=== PATIENT | female | born 1995 | race American Indian/Alaskan Native ===

== ENCOUNTER 2016-06-05 16:43 | Inpatient (IN) | payer MEDICAID, OTHER ==
[2016-06-05] MEDS ORDERED: Acetaminophen 325 MG Tab PO PRN (16:58)
[2016-06-05] MEDS ORDERED: Carboprost Tromethamine 250 MCG/1 ML Amp IM PRN (16:58)
[2016-06-05] MEDS ORDERED: Methylergonovine 0.2 MG/1 ML Amp IM PRN (16:58)
[2016-06-05] MEDS ORDERED: fentaNYL 100 MCG/2 ML SDV SUBCUT PRN ×2 (16:58→19:50)
[2016-06-05] MEDS ORDERED: Lactated Ringers 500 ML IV ONE (16:58)
[2016-06-05] MEDS ORDERED: Sodium Chloride 0.9% 10 ML Syringe FLUSH PRN (16:58)
[2016-06-05] MEDS ORDERED: Lidocaine 1% 30 ML SDV INJECT PRN (16:58)
[2016-06-05] MEDS ORDERED: Misoprostol 400 MCG (4 X 100 MCG TAB) RECTAL PRN (16:58)
[2016-06-05] MEDS ORDERED: Ondansetron 4 MG/2 ML SDV IV PRN (16:58)
[2016-06-05] MEDS ORDERED: Oxytocin/Normal Saline 30 UNIT/500 ML BAG IV SCH (17:00)
--- NOTE | 2016-06-05 17:02 | PCM.LDHP ---
L&D History of Present Illness - General Date of Service: 06/05/16 Admit Problem/Dx: Patient Status Order with Admit Dx/Problem 06/05/16 16:58 Patient Status [ADT] Routine Patient Status: Admit to Inpatient Admission Diagnosis/Problem: care Reason for Admit: Advanced cervical dilation Nurse Unit Type: Labor and Delivery Admitting Physician: Terra Eduardo Attending Physician: Terra Eduardo Admission Diagnosis/Problem Admission Diagnosis/Problem care Source of Information: Patient History Limitations: Reports: No limitations - History of Present Illness Introduction:: 21-year-old at 37w4d presents from clinic for advanced cervical dilation. She presented for her routine OB appointment today and complained of feeling pressure. Her cervix was significantly dilated at 5+ cm so she was sent here for evaluation. She is not feeling any contractions. NO vaginal bleeding or leaking of fluid. NO new headaches or vision changes. - Related Data Allergies/Adverse Reactions: Allergies Allergy/AdvReac Type Severity Reaction Status Date / Time No Known Allergies Allergy Verified 06/05/16 17:33 Home Medications: Home Meds Vit with Ca/FA/Iron [ Plus Iron] 1 tab PO DAILY 06/05/16 [ History] valACYclovir HCl [Valtrex] 500 mg PO DAILY 06/05/16 [History] H&P Review of Systems - Review of Systems: Review Of Systems: See Below General: Reports: no symptoms HEENT: Reports: no symptoms Pulmonary: Reports: no symptoms Cardiovascular: Reports: no symptoms Gastrointestinal: Reports: No symptoms Genitourinary: Reports: pain (pelvic) Musculoskeletal: Reports: no symptoms Skin: Reports: no symptoms L&D Exam - Exam Exam: See Below - OB Specific Fundal Height in cm: 40 Contraction Frequency (min): 3-5 Contraction Intensity: Mild movement: active heart tones: present heart tones per min: 140 Heart Rate (FHR) Variability: Moderate (6-25 bmp) Presentation: Vertex - Hope Score Hope Score Cervix Position: Midposition Hope Score Consistency: Soft Hope Score Effacement: 51-70% Hope Score Dilation: > 5 cm Hope Score Infant's Station: -2 Hope Score Total: 9 - Exam General: alert, oriented Lungs: Clear to auscultation, Normal respiratory effort Cardiovascular: regular rate, regular rhythm. No: systolic murmur, diastolic murmur Genitourinary: Normal external exam, Cervical dilitation (5 cm) Back Exam: normal inspection, full range of motion Extremities: normal inspection Skin: warm, dry, intact - Patient Data Result Diagrams: 06/05/16 16:55 Feroz Results last 24 hrs: Urinalysis in clinic positive for UTI - Problem List (1) care SNOMED Code(s): 956108265, 54210425, 481638175, 545502658 ICD Code: Z34.90 - ENCNTR FOR SUPRVSN OF NORMAL , UNSP, UNSP TRIMESTER Status: Acute Current Visit: Yes (2) UTI (urinary tract infection) in in third trimester SNOMED Code(s): 250882539, 184690626 ICD Code: O23.43 - UNSP INFCT OF URINARY TRACT IN , THIRD TRIMESTER Status: Acute Current Visit: Yes (3) Rubella non-immune status, antepartum SNOMED Code(s): 858143571 ICD Code: O99.89 - OTH DISEASES AND CONDITIONS COMPL PREG/CHLDBRTH; Z28.3 - UNDERIMMUNIZATION STATUS Status: Acute Current Visit: Yes (4) History of herpes genitalis SNOMED Code(s): 085492960 ICD Code: Z86.19 - PERSONAL HISTORY OF OTHER INFECTIOUS AND PARASITIC DISEASES Status: Acute Current Visit: Yes Problem List Initiated/Reviewed/Updated: Yes Orders Last 24hrs: Active Orders 24 hr Category Date Time Status Patient Status [ADT] Routine ADT 06/05/16 16:58 Ordered Communication Order [RC] ASDIRECTED Care 06/05/16 16:58 Ordered Heart Tones [RC] PER UNIT ROUTINE Care 06/05/16 16:58 Ordered Notify Provider Vital Signs OB [RC] ASDIRECTED Care 06/05/16 16:58 Ordered Notify Provider [RC] PRN Care 06/05/16 16:58 Ordered Pump Management, Intrathecal [RC] ASDIRECTED Care 06/05/16 16:58 Ordered Up ad Kaley [RC] ASDIRECTED Care 06/05/16 16:58 Ordered Vital Signs [RC] PER UNIT ROUTINE Care 06/05/16 16:58 Ordered Clear Liquid Diet [DIET] Diet 06/05/16 Dinner Ordered CBC W/O DIFF,HEMOGRAM [HEME] Routine Lab 06/05/16 16:58 Ordered Acetaminophen [Tylenol] Med 06/05/16 16:58 Ordered 650 mg PO Q4H PRN Carboprost Tromethamine [Hemabate DS] Med 06/05/16 16:58 Ordered 250 mcg IM ASDIRECTED PRN Lactated Ringers @ 125 MLS/HR(1000ml) Med 06/05/16 17:00 Ordered Lactated Ringers [Ringers, Lactated] 1,000 ml IV ASDIRECTED Lactated Ringers [Ringers, Lactated] 500 ml Med 06/05/16 16:58 Ordered IV .BOLUS Lidocaine 1% [Xylocaine-MPF 1%] Med 06/05/16 16:58 Ordered 10 ml INJECT ASDIRECTED PRN Methylergonovine [Methergine] Med 06/05/16 16:58 Ordered 0.2 mg IM ASDIRECTED PRN Misoprostol [Cytotec] Med 06/05/16 16:58 Ordered 800 mcg RECTAL ASDIRECTED PRN Ondansetron [Zofran] Med 06/05/16 16:58 Ordered 4 mg IV Q4H PRN Oxytocin 30 Units in NS @ 2 MUNITS/MIN(500ml) Med 06/05/16 17:00 Ordered Oxytocin/Normal Saline [Pitocin in NS 30 UNIT/500 ML] 30 unit in 500 ml IV TITRATE Sodium Chloride 0.9% [Saline Flush] Med 06/05/16 16:58 Ordered 10 ml FLUSH ASDIRECTED PRN fentaNYL [Sublimaze] Med 06/05/16 16:58 Ordered 100 mcg SUBCUT Q1H PRN Saline Lock Insert [OM.PC] Routine Oth 06/05/16 16:58 Ordered Resuscitation Status Routine Resus Stat 06/05/16 16:58 Ordered Medication Orders Acetaminophen (Tylenol) 650 mg PO Q4H PRN PRN Reason: Pain (Mild 1-3) and fever Carboprost Tromethamine (Hemabate Ds) 250 mcg IM ASDIRECTED PRN PRN Reason: HEMORRHAGE Fentanyl (Sublimaze) 100 mcg SUBCUT Q1H PRN PRN Reason: Pain (moderate 4-6) Lactated Ringer's (Ringers, Lactated) 500 mls @ 999 mls/hr IV .BOLUS ONE Stop: 06/05/16 17:28 Lactated Ringer's (Ringers, Lactated) 1,000 mls @ 125 mls/hr IV ASDIRECTED ERNESTO Oxytocin/Sodium Chloride (Pitocin In Ns 30 Unit/500 Ml) 30 unit in 500 mls @ 2 mls/hr IV TITRATE ERNESTO; 2 MUNITS/MIN PRN Reason: Protocol Lidocaine HCl (Xylocaine-Mpf 1%) 10 ml INJECT ASDIRECTED PRN PRN Reason: Perineal Repair Methylergonovine Maleate (Methergine) 0.2 mg IM ASDIRECTED PRN PRN Reason: Hemorrhage Misoprostol (Cytotec) 800 mcg RECTAL ASDIRECTED PRN PRN Reason: Hemorrhage Ondansetron HCl (Zofran) 4 mg IV Q4H PRN PRN Reason: Nausea/Vomiting Sodium Chloride (Saline Flush) 10 ml FLUSH ASDIRECTED PRN PRN Reason: Keep Vein Open Assessment/Plan Comment:: 21-year-old at 38w6d presenting in labor --UTI in PLAN: 1. Admit to labor and delivery 2. Initiate routine intrapartum orders 3. AROM'd for moderate clear fluid 4. Rocephin for UTI 5. Intrathecal when desired 6. Expectant management. Anticipate Terra Eduardo MD
[2016-06-05] MEDS: Lactated Ringers 1,000 ML IV SCH ×2 (17:23→20:21)
[2016-06-05] MEDS: cefTRIAXone 1 GM in Sodium Chloride 0.9% 50 ML IV SCH (18:00)
--- NOTE | 2016-06-05 20:51 | PCM.SN ---
- Free Text/Narrative Note: Intrathecal. Sitting position, sterile prep and drape. 1% lidocaine w bicarb for skinwheal to L2 L3 interspace. Introducer, 24 ga pencan x 1. Pos CSF, neg heme, neg parasthesia. 20 mcg pf sufenta, 30 mcg pf fentanyl, 0.4ml pf ns 6 mg of 0.75 % pf bupivacaine and 1:1000 pf epiwash injected after CSF aspiration. Pt to R lateral position. Procedure time 2034 to 2099
[2016-06-06] MEDS: Lactated Ringers 1,000 ML IV SCH (01:55)
[2016-06-06] MEDS ORDERED: Benzocaine/Menthol 20%-0.5% Spray 56 GM Canister TOP PRN (03:09)
[2016-06-06] MEDS ORDERED: Oxytocin 10 Units/1 ML SDV IM PRN (03:09)
[2016-06-06] MEDS ORDERED: Misoprostol 400 MCG (4 X 100 MCG TAB) RECTAL PRN (03:09)
[2016-06-06] MEDS ORDERED: Sodium Chloride 0.9% 10 ML Syringe FLUSH PRN (03:09)
[2016-06-06] MEDS ORDERED: Simethicone 80 MG Tab.Chew PO PRN (03:09)
[2016-06-06] MEDS ORDERED: Ketorolac 30 MG/ML SDV IVPUSH PRN (03:11)
--- NOTE | 2016-06-06 03:19 | PCM.DEL ---
L & D Note - General Info Date of Service: 06/06/16 Mother's Due Date: 06/14/16 - Delivery Note Labor: spontaneous, augmented by ARM Delivery Outcome: Livebirth Delivery Method: Spontaneous Vaginal Delivery Infant Delivery Mode: Vacuum Extraction Presentation: Right Occiput Anterior (GREER) Nuchal cord: present, reduced Prep: povidone-iodine (betadine Anesthesia Type: Local, Spinal Anesthetic: lidocaine (xylocaine) 1% plain Local anesthetic volume: other (15 cc) Amniotic Fluid Description: Clear Episiotomy Type: None Laceration: 1st degree, labial (bilateral), perineal Suture type: vicryl Suture size: 4-0 Placenta: intact, spontaneous Cord: 3 vessels Estimated blood loss: 175 Resuscitation needed: Yes [place] [facility]: suctioned, stimulated, warmed, warmer used Score 1 min: 8 Score 5 min: 9 Second Stage Interventions: Reports: Laboring Down, Pushing, Reverse Squat, Pushing Effectively, Pushing, Squatting Delivery Comments (Free Text/Narrative):: 21-year-old, now , presented to the OB floor from clinic for advanced cervical dilation. She was sheba but did not feel them initially. AROM was performed to augment labor. Patient received an intrathecal. She progressed to complete dilation. When she started to feel the urge to push, she pushed effectively for 1 1/2 hours. Due to maternal fatigue, the decision was made to proceed with vacuum delivery. Vacuum delivery was successful and baby delivered after 3 contractions. After the 3rd contraction, heart tones were in the 60s so patient pushed without a contraction and successfully delivered a viable female infant. A loose nuchal cord was reduced at the perineum. The cord was clamped x2 and cut in the usual fashion. Cord blood was collected. The placenta delivered spontaneously several minutes later and appeared to be intact. Small bilateral labial tears were repaired. One figure- of-8 suture was used to reapproximate a first degree perineal laceration. Bleeding was appropriate. There were no complications. Vacuum Extractor Progress Note - Alternative Labor Strategies Considered Alternative labor strategies considered:: Reports: yes Strategies considered:: Reports: Contraction intensity adequate, Position changes used to facilitate rotation & descent, Empty bladder, Rest Indications considered:: Reports: yes Indications:: Reports: Prolonged 2nd stage, Shortening of 2nd stage for maternal benefit Time out:: Reports: no - Patient Prepared Patient prepared:: Reports: yes Informed consent:: Reports: Verbal Risks: Reports: yes Risks include:: Reports: Laceration, Shoulder dystocia, Maternal injury Anesthesia/analgesia adequate:: Reports: yes Comments:: Spinal anesthesia - Probability of Success High probability of success:: Reports: yes weight estimated:: Reports: AGA Patient diabetic:: Reports: no Pelvis adequate:: Reports: yes Asynclitic:: Reports: no Station:: +1 - Application Time Maximum application time & number of pop-offs predetermined:: Reports: yes (20 min, 3 pop-offs) Number of times cup disengaged:: 1 Type of vacuum used:: Reports: Cup: Tee type Vacuum Extraction: Successful - Exit Strategy Exit strategy available:: Reports: yes - General Info Date of Service: 06/06/16 - Patient Data Vitals - most recent: Last Vital Signs Temp 36.7 C 06/05/16 20:45 Pulse 96 06/05/16 23:00 Resp 16 06/05/16 23:00 BP 140/76 06/05/16 23:00 Pulse Ox 94 L 06/05/16 22:30 Weight - most recent: 88.904 kg I&O - last 24 hours: Intake & Output 06/05/16 06/05/16 06/06/16 14:59 22:59 06:59 Intake Total 1050 Balance 1050 Lab Results last 24 hrs: Laboratory Results - last 24 hr 06/05/16 Range/Units 16:55 WBC 11.6 H (5.0-10.0) 10^3/uL RBC 4.15 L (4.2-5.4) 10^6/uL Hgb 12.7 (12.0-16.0) g/dL Hct 38.0 (37.0-47.0) % MCV 91.6 (80-100) fL MCH 30.6 (27.0-34.0) pg MCHC 33.4 (33.0-35.0) g/dL Plt Count 225 (150-450) 10^3/uL Med Orders - Current: Current Medications Acetaminophen (Tylenol) 650 mg PO Q4H PRN PRN Reason: Pain (Mild 1-3) and fever Acetaminophen/Hydrocodone Bitart ([place] 325-10 Mg) 1 tab PO Q4H PRN PRN Reason: Pain (moderate 4-6) Benzocaine/Menthol (Dermoplast Pain Relief [place]) 0 gm TOP Q4H PRN PRN Reason: Perineal comfort measures Carboprost Tromethamine (Hemabate Ds) 250 mcg IM ASDIRECTED PRN PRN Reason: HEMORRHAGE Docusate Sodium (Colace) 100 mg PO BID PRN PRN Reason: Constipation Oxytocin/Sodium Chloride (Pitocin In Ns 30 Unit/500 Ml) 30 unit in 500 mls @ 2 mls/hr IV TITRATE ERNESTO; 2 MUNITS/MIN PRN Reason: Protocol Ceftriaxone Sodium 1 gm/ (Sodium Chloride) 50 mls @ 100 mls/hr IV Q24H ERNESTO Last Admin: 06/05/16 18:00 Dose: 100 mls/hr Ibuprofen (Motrin) 800 mg PO Q8H PRN PRN Reason: Mild Pain or Fever Ketorolac Tromethamine (Toradol) 30 mg IVPUSH Q8H PRN PRN Reason: Pain Stop: 06/11/16 03:11 Methylergonovine Maleate (Methergine) 0.2 mg IM ASDIRECTED PRN PRN Reason: Hemorrhage Misoprostol (Cytotec) 800 mcg RECTAL ASDIRECTED PRN PRN Reason: Hemorrhage Misoprostol (Cytotec) 800 mcg RECTAL ONETIME PRN PRN Reason: Hemorrhage Oxytocin (Pitocin) 10 unit IM ONETIME PRN PRN Reason: Bleeding Prenat Multivit/[place]/Iron/Folic Ac ( Plus Iron) 1 each PO DAILY [facility] Simethicone (Simethicone) 80 mg PO Q4H PRN PRN Reason: Gas Sodium Chloride (Saline Flush) 10 ml FLUSH ASDIRECTED PRN PRN Reason: Keep Vein Open Sodium Chloride (Saline Flush) 10 ml FLUSH ASDIRECTED PRN PRN Reason: Keep Vein Open Discontinued Medications Fentanyl (Sublimaze) 100 mcg SUBCUT Q1H PRN PRN Reason: Pain (moderate 4-6) Fentanyl (Sublimaze) 50 mcg SUBCUT Q1H PRN PRN Reason: Pain (moderate 4-6) Last Admin: 06/05/16 19:52 Dose: 50 mcg Lactated Ringer's (Ringers, Lactated) 500 mls @ 999 mls/hr IV .BOLUS ONE Stop: 06/05/16 17:28 Lactated Ringer's (Ringers, Lactated) 1,000 mls @ 125 mls/hr IV ASDIRECTED ERNESTO Last Admin: 06/05/16 20:21 Dose: 125 mls/hr Lidocaine HCl (Xylocaine-Mpf 1%) 10 ml INJECT ASDIRECTED PRN PRN Reason: Perineal Repair Ondansetron HCl (Zofran) 4 mg IV Q4H PRN PRN Reason: Nausea/Vomiting - Problem List & Annotations (1) care SNOMED Code(s): 569910428, 80069423, 747825090, 717766182 Code(s): Z34.90 - ENCNTR FOR SUPRVSN OF NORMAL , UNSP, UNSP TRIMESTER Status: Acute Current Visit: Yes (2) UTI (urinary tract infection) in in third trimester SNOMED Code(s): 576867529, 399120705 Code(s): O23.43 - UNSP INFCT OF URINARY TRACT IN , THIRD TRIMESTER Status: Acute Current Visit: Yes (3) Rubella non-immune status, antepartum SNOMED Code(s): 878968616 Code(s): O99.89 - OTH DISEASES AND CONDITIONS COMPL PREG/CHLDBRTH; Z28.3 - UNDERIMMUNIZATION STATUS Status: Acute Current Visit: Yes (4) History of herpes genitalis SNOMED Code(s): 199369950 Code(s): Z86.19 - PERSONAL HISTORY OF OTHER INFECTIOUS AND PARASITIC DISEASES Status: Acute Current Visit: Yes (5) Status post vacuum-assisted vaginal delivery SNOMED Code(s): 800976530, 02434374460743198 Code(s): Z87.42 - PERSONAL HISTORY OF OTH DISEASES OF THE FEMALE GENITAL TRACT Status: Acute Current Visit: Yes (6) Obstetric labial laceration, delivered, current hospitalization SNOMED Code(s): 655322015, 830507579 Code(s): O70.0 - FIRST DEGREE PERINEAL LACERATION DURING DELIVERY Status: Acute Current Visit: Yes (7) Perineal laceration, first degree, delivered SNOMED Code(s): 549929218 Code(s): O70.0 - FIRST DEGREE PERINEAL LACERATION DURING DELIVERY Status: Acute Current Visit: Yes - Problem List Review Problem List Initiated/Reviewed/Updated: Yes - My Orders Last 24 Hours: My Active Orders 06/05/16 16:58 Patient Status [ADT] Routine Notify Provider Vital Signs OB [RC] ASDIRECTED Notify Provider [RC] PRN Vital Signs [RC] PER UNIT ROUTINE Acetaminophen [Tylenol] 650 mg PO Q4H PRN Carboprost Tromethamine [Hemabate DS] 250 mcg IM ASDIRECTED PRN Methylergonovine [Methergine] 0.2 mg IM ASDIRECTED PRN Misoprostol [Cytotec] 800 mcg RECTAL ASDIRECTED PRN Sodium Chloride 0.9% [Saline Flush] 10 ml FLUSH ASDIRECTED PRN Saline Lock Insert [OM.PC] Routine Resuscitation Status Routine 06/05/16 17:00 Oxytocin/Normal Saline [Pitocin in NS 30 UNIT/500 ML] 30 unit in 500 ml IV TITRATE 06/05/16 18:00 cefTRIAXone [Rocephin] 1 gm Sodium Chloride 0.9% [Normal Saline] 50 ml IV Q24H 06/06/16 03:09 Up ad Kaley [RC] ASDIRECTED Vital Signs [RC] PFP Consult to Pipe Cleaner [CONS] Routine Acetaminophen/HYDROcodone [[place] 325-10 MG] 1 tab PO Q4H PRN Benzocaine/Menthol [Dermoplast Pain Relief [place]] See Dose Instructions TOP Q4H PRN Docusate Sodium [Colace] 100 mg PO BID PRN Ibuprofen [Motrin] 800 mg PO Q8H PRN Misoprostol [Cytotec] 800 mcg RECTAL ONETIME PRN Oxytocin [Pitocin] 10 unit IM ONETIME PRN Simethicone 80 mg PO Q4H PRN Sodium Chloride 0.9% [Saline Flush] 10 ml FLUSH ASDIRECTED PRN Assess Lochia [WOMSER] Per Unit Routine Assess Uterine Involution [WOMSER] Per Unit Routine Breast Pump [WOMSER] Per Unit Routine Ice Therapy [OM.PC] Per Unit Routine Perineal Care [OM.PC] Per Unit Routine Saline Lock Insert [OM.PC] Urgent Sitz Bath [OM.PC] Per Unit Routine 06/06/16 03:11 Ketorolac [Toradol] 30 mg IVPUSH Q8H PRN 06/06/16 09:00 Vit with Ca/FA/Iron [ Plus Iron] 1 each PO DAILY 06/06/16 Breakfast Regular Diet [DIET] - Assessment Assessment:: 21-year-old, now , status post vacuum assisted vaginal delivery - Plan Plan:: 1. Initiate routine orders 2. Closely monitor bleeding 3. Continue rocephin for UTI. Will switch to oral medications tomorrow 4. [place] and Toradol ordered if needed for moderate to severe pain 5. Anticipate discharge 06/08/16 Terra Eduardo MD
[2016-06-06] MEDS: Ibuprofen 800 MG Tab PO PRN ×3 (05:06→22:04)
[2016-06-06] MEDS: Docusate Sodium 100 MG Cap PO PRN ×2 (08:45→22:04)
[2016-06-06] MEDS: Prenatal Multivitamin with Calcium/Folic Acid/Iron Tab PO SCH (08:45)
[2016-06-06] MEDS: cefTRIAXone 1 GM in Sodium Chloride 0.9% 50 ML IV SCH (17:09)
[2016-06-06] MEDS ORDERED: fentaNYL 100 MCG/2 ML SDV IV ONE (23:30)
[2016-06-07] MEDS: Ibuprofen 800 MG Tab PO PRN ×3 (06:01→22:04)
[2016-06-07] MEDS: Prenatal Multivitamin with Calcium/Folic Acid/Iron Tab PO SCH (10:22)
[2016-06-07] MEDS: Docusate Sodium 100 MG Cap PO PRN ×2 (10:22→22:03)
--- NOTE | 2016-06-07 16:45 | PCM.PNPP ---
- General Info Date of Service: 06/07/16 Subjective Update: 21-year-old, now , day #1 status post vacuum assisted vaginal delivery and bilateral labial repair. She is overall doing well. Pain is well controlled. She does report improved perineal swelling. Bleeding has decreased. She is ambulating without difficulty and tolerating a general diet. She is urinating without difficulty and is passing gas. No concerns per patient or nursing. Functional Status: Reports: pain controlled, tolerating diet, ambulating, urinating - Review of Systems General: Reports: no symptoms HEENT: Reports: no symptoms Pulmonary: Reports: no symptoms Cardiovascular: Reports: no symptoms Gastrointestinal: Reports: No symptoms Genitourinary: Reports: no symptoms Musculoskeletal: Reports: no symptoms Skin: Reports: no symptoms - General Info Date of Service: 06/07/16 - Patient Data Vital Signs - most recent: Last Vital Signs Temp 36.8 C 06/07/16 10:26 Pulse 96 06/07/16 10:26 Resp 16 06/07/16 10:26 BP 117/67 06/07/16 10:26 Pulse Ox 98 06/07/16 10:26 Weight - most recent: 88.904 kg Med Orders - Current: Current Medications Acetaminophen (Tylenol) 650 mg PO Q4H PRN PRN Reason: Pain (Mild 1-3) and fever Acetaminophen/Hydrocodone Bitart ([place] 325-10 Mg) 1 tab PO Q4H PRN PRN Reason: Pain (moderate 4-6) Benzocaine/Menthol (Dermoplast Pain Relief [place]) 0 gm TOP Q4H PRN PRN Reason: Perineal comfort measures Last Admin: 06/06/16 05:06 Dose: 1 spray Carboprost Tromethamine (Hemabate Ds) 250 mcg IM ASDIRECTED PRN PRN Reason: HEMORRHAGE Docusate Sodium (Colace) 100 mg PO BID PRN PRN Reason: Constipation Last Admin: 06/07/16 10:22 Dose: 100 mg Oxytocin/Sodium Chloride (Pitocin In Ns 30 Unit/500 Ml) 30 unit in 500 mls @ 2 mls/hr IV TITRATE ERNESTO; 2 MUNITS/MIN PRN Reason: Protocol Last Titration: 06/06/16 04:37 Dose: Infused Ibuprofen (Motrin) 800 mg PO Q8H PRN PRN Reason: Mild Pain or Fever Last Admin: 06/07/16 13:44 Dose: 800 mg Ketorolac Tromethamine (Toradol) 30 mg IVPUSH Q8H PRN PRN Reason: Pain Stop: 06/11/16 03:11 Methylergonovine Maleate (Methergine) 0.2 mg IM ASDIRECTED PRN PRN Reason: Hemorrhage Misoprostol (Cytotec) 800 mcg RECTAL ASDIRECTED PRN PRN Reason: Hemorrhage Misoprostol (Cytotec) 800 mcg RECTAL ONETIME PRN PRN Reason: Hemorrhage Oxytocin (Pitocin) 10 unit IM ONETIME PRN PRN Reason: Bleeding Prenat Multivit/[place]/Iron/Folic Ac ( Plus Iron) 1 each PO DAILY [facility] Last Admin: 06/07/16 10:22 Dose: 1 each Simethicone (Simethicone) 80 mg PO Q4H PRN PRN Reason: Gas Sodium Chloride (Saline Flush) 10 ml FLUSH ASDIRECTED PRN PRN Reason: Keep Vein Open Sodium Chloride (Saline Flush) 10 ml FLUSH ASDIRECTED PRN PRN Reason: Keep Vein Open Discontinued Medications Fentanyl (Sublimaze) 100 mcg SUBCUT Q1H PRN PRN Reason: Pain (moderate 4-6) Fentanyl (Sublimaze) 50 mcg SUBCUT Q1H PRN PRN Reason: Pain (moderate 4-6) Last Admin: 06/05/16 19:52 Dose: 50 mcg Lactated Ringer's (Ringers, Lactated) 500 mls @ 999 mls/hr IV .BOLUS ONE Stop: 06/05/16 17:28 Last Admin: 06/06/16 07:54 Dose: Not Given Lactated Ringer's (Ringers, Lactated) 1,000 mls @ 125 mls/hr IV ASDIRECTED [facility] Last Admin: 06/06/16 01:55 Dose: 125 mls/hr Ceftriaxone Sodium 1 gm/ (Sodium Chloride) 50 mls @ 100 mls/hr IV Q24H [facility] Last Admin: 06/06/16 17:09 Dose: 100 mls/hr Lidocaine HCl (Xylocaine-Mpf 1%) 10 ml INJECT ASDIRECTED PRN PRN Reason: Perineal Repair Last Admin: 06/06/16 05:09 Dose: 20 ml Ondansetron HCl (Zofran) 4 mg IV Q4H PRN PRN Reason: Nausea/Vomiting - Infant Interaction Infant Disposition, : in Room with Family Support Person: Mother - Recovery Exam Fundal Tone: Firm Fundal Level: 2 Fingerbreadths Below Umbilicus Fundal Placement: Midline Lochia Amount: Small Lochia Color: Rubra/Red Perineum Description: Edematous Episiotomy/Laceration: Approximated Bladder Status: Nonpalpable - Exam General: alert, oriented Lungs: Clear to auscultation, Normal respiratory effort Cardiovascular: regular rate, regular rhythm. No: murmurs Extremities: edema (1+) Skin: warm, dry, intact - Problem List & Annotations (1) care SNOMED Code(s): 057713014, 47633396, 821604536, 124090261 Code(s): Z34.90 - ENCNTR FOR SUPRVSN OF NORMAL , UNSP, UNSP TRIMESTER Status: Acute Current Visit: Yes (2) UTI (urinary tract infection) in in third trimester SNOMED Code(s): 091668417, 907034702 Code(s): O23.43 - UNSP INFCT OF URINARY TRACT IN , THIRD TRIMESTER Status: Acute Current Visit: Yes (3) Rubella non-immune status, antepartum SNOMED Code(s): 689918506 Code(s): O99.89 - OTH DISEASES AND CONDITIONS COMPL PREG/CHLDBRTH; Z28.3 - UNDERIMMUNIZATION STATUS Status: Acute Current Visit: Yes (4) History of herpes genitalis SNOMED Code(s): 574023275 Code(s): Z86.19 - PERSONAL HISTORY OF OTHER INFECTIOUS AND PARASITIC DISEASES Status: Acute Current Visit: Yes (5) Status post vacuum-assisted vaginal delivery SNOMED Code(s): 277244640, 57030139443322869 Code(s): Z87.42 - PERSONAL HISTORY OF OTH DISEASES OF THE FEMALE GENITAL TRACT Status: Acute Current Visit: Yes (6) Obstetric labial laceration, delivered, current hospitalization SNOMED Code(s): 595982412, 887512921 Code(s): O70.0 - FIRST DEGREE PERINEAL LACERATION DURING DELIVERY Status: Acute Current Visit: Yes (7) Perineal laceration, first degree, delivered SNOMED Code(s): 591394645 Code(s): O70.0 - FIRST DEGREE PERINEAL LACERATION DURING DELIVERY Status: Acute Current Visit: Yes - Problem List Review Problem List Initiated/Reviewed/Updated: Yes - Assessment Assessment:: 21-year-old, now , PPD#1 status post vacuum assisted vaginal delivery - Plan Plan:: 1. Continue routine orders 2. Will discontinue rocephing for UTI 4. [place] and Toradol ordered if needed for moderate to severe pain 5. Anticipate discharge 06/08/16 Terra Eduardo MD
[2016-06-07] MEDS ORDERED: Acetaminophen/HYDROcodone 325-10 MG Tab PO ONE (19:50)
[2016-06-08] MEDS: Acetaminophen/HYDROcodone 325-10 MG Tab PO PRN ×3 (00:03→22:03)
[2016-06-08] MEDS: Ibuprofen 800 MG Tab PO PRN ×3 (06:02→22:03)
[2016-06-08 08:35] VITALS: BP 119/64
[2016-06-08] MEDS: Prenatal Multivitamin with Calcium/Folic Acid/Iron Tab PO SCH (09:47)
[2016-06-08] MEDS: Docusate Sodium 100 MG Cap PO PRN (09:47)
--- NOTE | 2016-06-08 11:29 | PCM.DCSUM1 ---
Discharge Summary - Hospital Course Free Text/Narrative:: 21-year-old, now , presented to the OB floor with advanced cervical dilation and early labor. AROM was performed to augment labor. She did receive an intrathecal for pain control. She progressed to complete dilation. After pushing for about 1 1/2 hours, patient was becoming very fatigued, so the decision was make to proceed with vacuum assisted vaginal delivery. A viable female infant was born with Apgars of 8 and 9 at 1 and 5 minutes respectively. The placenta delivered spontaneously a short time later and was found to be intact. Two labial lacerations were repaired with a combination of running and interrupted sutures. A small 1st degree perineal laceration was repaired with on figure-of-8 stitch. Bleeding was appropriate, and there were no complications. - Discharge Data Discharge Date: 06/08/16 Discharge Disposition: Home, Self-Care 01 Condition: Good - Discharge Diagnosis/Problem(s) (1) care SNOMED Code(s): 743611231, 43578199, 655011566, 843288395 ICD Code: Z34.90 - ENCNTR FOR SUPRVSN OF NORMAL , UNSP, UNSP TRIMESTER Status: Acute Current Visit: Yes (2) UTI (urinary tract infection) in in third trimester SNOMED Code(s): 680114842, 575970734 ICD Code: O23.43 - UNSP INFCT OF URINARY TRACT IN , THIRD TRIMESTER Status: Acute Current Visit: Yes (3) Rubella non-immune status, antepartum SNOMED Code(s): 515314520 ICD Code: O99.89 - OTH DISEASES AND CONDITIONS COMPL PREG/CHLDBRTH; Z28.3 - UNDERIMMUNIZATION STATUS Status: Acute Current Visit: Yes (4) History of herpes genitalis SNOMED Code(s): 658601614 ICD Code: Z86.19 - PERSONAL HISTORY OF OTHER INFECTIOUS AND PARASITIC DISEASES Status: Acute Current Visit: Yes (5) Status post vacuum-assisted vaginal delivery SNOMED Code(s): 329866195, 72820311569951129 ICD Code: Z87.42 - PERSONAL HISTORY OF OTH DISEASES OF THE FEMALE GENITAL TRACT Status: Acute Current Visit: Yes (6) Obstetric labial laceration, delivered, current hospitalization SNOMED Code(s): 369441870, 932747524 ICD Code: O70.0 - FIRST DEGREE PERINEAL LACERATION DURING DELIVERY Status: Acute Current Visit: Yes (7) Perineal laceration, first degree, delivered SNOMED Code(s): 870683237 ICD Code: O70.0 - FIRST DEGREE PERINEAL LACERATION DURING DELIVERY Status: Acute Current Visit: Yes - Patient Summary/Data Operative Procedure(s) Performed: Vacuum assisted vaginal delivery Complications: None Consults: Consultations 06/06/16 03:09 Consult to Financial Management [CONS] Routine Labs Pending at D/C: None Recommended Follow-up Testing/Procedures: None Planned Operative Procedure(s) after DC: None Hospital Course: Unremarkable hospital course. Patient was quite sore on PPD #1; however, this has improved. No clinical signs of anemia. No issues voiding or stooling. No unusual vaginal bleeding. - Patient Instructions Diet: Usual Diet as Tolerated Activity: Apply Ice, No Lifting Over 20 Pounds Driving: May Drive Today Showering/Bathing: May Shower Notify Provider of: Fever, Increased Pain, Nausea and/or Vomiting - Discharge Plan Home Medications: Home Meds Vit with Ca/FA/Iron [ Plus Iron] 1 tab PO DAILY 06/05/16 [ History] Acetaminophen [Tylenol] 650 mg PO Q4H PRN #0 tablet 06/08/16 [Rx] Docusate Sodium [Colace] 100 mg PO BID PRN #0 cap 06/08/16 [Rx] Ibuprofen [IJD: Ibuprofen] 800 mg PO Q8H PRN #0 tablet 06/08/16 [Rx] Referrals: Terra Eduardo MD [Physician] - ([address] Eduardo on July 18, 2016 at 1:20pm) - Discharge Summary/Plan Comment DC Time >30 min.: No Discharge Summary/Plan Comment: Discharge patient home today with follow-up in 6 weeks for visit. ( Patient will be staying in the hospital for at least another 24 hours as baby is not being discharged today due to hyperbilirubinemia). Reasons to return sooner were discussed with the patient. Terra Eduardo MD - Patient Data Vitals - Most Recent: Last Vital Signs Temp 36.9 C 06/08/16 08:00 Pulse 102 H 06/08/16 08:00 Resp 16 06/08/16 08:00 BP 119/64 06/08/16 08:00 Pulse Ox 99 06/08/16 08:00 Weight - Most Recent: 88.904 kg Med Orders - Current: Current Medications Acetaminophen (Tylenol) 650 mg PO Q4H PRN PRN Reason: Pain (Mild 1-3) and fever Acetaminophen/Hydrocodone Bitart ([place] 325-10 Mg) 1 tab PO Q4H PRN PRN Reason: Pain (moderate 4-6) Last Admin: 06/08/16 04:22 Dose: 1 tab Benzocaine/Menthol (Dermoplast Pain Relief [place]) 0 gm TOP Q4H PRN PRN Reason: Perineal comfort measures Last Admin: 06/06/16 05:06 Dose: 1 spray Carboprost Tromethamine (Hemabate Ds) 250 mcg IM ASDIRECTED PRN PRN Reason: HEMORRHAGE Docusate Sodium (Colace) 100 mg PO BID PRN PRN Reason: Constipation Last Admin: 06/08/16 09:47 Dose: 100 mg Oxytocin/Sodium Chloride (Pitocin In Ns 30 Unit/500 Ml) 30 unit in 500 mls @ 2 mls/hr IV TITRATE ERNESTO; 2 MUNITS/MIN PRN Reason: Protocol Last Titration: 06/06/16 04:37 Dose: Infused Ibuprofen (Motrin) 800 mg PO Q8H PRN PRN Reason: Mild Pain or Fever Last Admin: 06/08/16 06:02 Dose: 800 mg Ketorolac Tromethamine (Toradol) 30 mg IVPUSH Q8H PRN PRN Reason: Pain Stop: 06/11/16 03:11 Methylergonovine Maleate (Methergine) 0.2 mg IM ASDIRECTED PRN PRN Reason: Hemorrhage Misoprostol (Cytotec) 800 mcg RECTAL ASDIRECTED PRN PRN Reason: Hemorrhage Misoprostol (Cytotec) 800 mcg RECTAL ONETIME PRN PRN Reason: Hemorrhage Oxytocin (Pitocin) 10 unit IM ONETIME PRN PRN Reason: Bleeding Prenat Multivit/[employer]man/Iron/Folic Ac ( Plus Iron) 1 each PO DAILY ERNESTO Last Admin: 06/08/16 09:47 Dose: 1 each Simethicone (Simethicone) 80 mg PO Q4H PRN PRN Reason: Gas Sodium Chloride (Saline Flush) 10 ml FLUSH ASDIRECTED PRN PRN Reason: Keep Vein Open Sodium Chloride (Saline Flush) 10 ml FLUSH ASDIRECTED PRN PRN Reason: Keep Vein Open Discontinued Medications Acetaminophen/Hydrocodone Bitart ([place] 325-10 Mg) 1 tab PO ONETIME ONE Stop: 06/07/16 19:51 Last Admin: 06/07/16 20:01 Dose: 1 tab Fentanyl (Sublimaze) 100 mcg SUBCUT Q1H PRN PRN Reason: Pain (moderate 4-6) Fentanyl (Sublimaze) 50 mcg SUBCUT Q1H PRN PRN Reason: Pain (moderate 4-6) Last Admin: 06/05/16 19:52 Dose: 50 mcg Lactated Ringer's (Ringers, Lactated) 500 mls @ 999 mls/hr IV .BOLUS ONE Stop: 06/05/16 17:28 Last Admin: 06/06/16 07:54 Dose: Not Given Lactated Ringer's (Ringers, Lactated) 1,000 mls @ 125 mls/hr IV ASDIRECTED [facility] Last Admin: 06/06/16 01:55 Dose: 125 mls/hr Ceftriaxone Sodium 1 gm/ (Sodium Chloride) 50 mls @ 100 mls/hr IV Q24H [facility] Last Admin: 06/06/16 17:09 Dose: 100 mls/hr Lidocaine HCl (Xylocaine-Mpf 1%) 10 ml INJECT ASDIRECTED PRN PRN Reason: Perineal Repair Last Admin: 06/06/16 05:09 Dose: 20 ml Ondansetron HCl (Zofran) 4 mg IV Q4H PRN PRN Reason: Nausea/Vomiting *Q Meaningful Use (DIS) - VTE *Q VTE Criteria *Q: - Stroke *Q Stroke Criteria *Q: - AMI *Q AMI Criteria *Q:
== END 2016-06-08 23:31 | disposition home or self-care (01) | DRG 775 ==
LOC: DL.OBCHECK 16:43 → DL.OB 16:45 → OBSVTOIN 06-06 02:26
PROVIDERS: ADMIT Family Medicine; ATTEND Family Medicine
PROC: 10D07Z6 Extraction of Products of Conception, Vacuum, Via Natural or Artificial Opening (ICD-10-PCS; principal; 2016-06-06)
PROC: 10907ZC Drainage of Amniotic Fluid, Therapeutic from Products of Conception, Via Natural or Artificial Opening (ICD-10-PCS; 2016-06-06)
PROC: 0HQ9XZZ Repair Perineum Skin, External Approach (ICD-10-PCS; 2016-06-06)
DX: O23.43 Unspecified infection of urinary tract in pregnancy, third trimester (principal); O99.89 Other specified diseases and conditions complicating pregnancy, childbirth and the puerperium; Z86.19 Personal history of other infectious and parasitic diseases; Z87.42 Personal history of other diseases of the female genital tract; O70.0 First degree perineal laceration during delivery; O69.81X0 Labor and delivery complicated by cord around neck, without compression, not applicable or unspecified; O75.81 Maternal exhaustion complicating labor and delivery; O66.5 Attempted application of vacuum extractor and forceps; Z3A.38 38 weeks gestation of pregnancy; Z37.0 Single live birth
CPT/HCPCS: 01967; 36415; 85027; A9270-GY; J0696; J2590; J3010; J7050; J7120

== ENCOUNTER 2017-11-20 04:56 | Observation (INO) | payer MEDICAID, OTHER ==
[2017-11-20] MEDS: Lactated Ringers 1,000 ML IV SCH ×2 (06:02→09:10)
[2017-11-20] MEDS ORDERED: Ampicillin 2 GM in Sodium Chloride 0.9% 100 ML IV ONE (06:08)
[2017-11-20] MEDS ORDERED: Sodium Chloride 0.9% 100 ML ONE (06:30)
[2017-11-20] MEDS ORDERED: Sodium Chloride 0.9% 10 ML Syringe FLUSH PRN (07:11)
[2017-11-20] MEDS ORDERED: Tranexamic Acid 1,000 MG in Sodium Chloride 0.9% 100 ML IV PRN (07:11)
[2017-11-20] MEDS ORDERED: Misoprostol 400 MCG (4 X 100 MCG TAB) RECTAL PRN (07:11)
[2017-11-20] MEDS ORDERED: Ondansetron 4 MG/2 ML SDV IV PRN (07:11)
[2017-11-20] MEDS ORDERED: Carboprost Tromethamine 250 MCG/1 ML Amp IM PRN (07:11)
[2017-11-20] MEDS ORDERED: Lactated Ringers 500 ML IV ONE (07:11)
[2017-11-20] MEDS ORDERED: Lidocaine 1% 30 ML SDV INJECT PRN (07:11)
[2017-11-20] MEDS ORDERED: Methylergonovine 0.2 MG/1 ML Amp IM PRN (07:11)
[2017-11-20] MEDS ORDERED: Acetaminophen 325 MG Tab PO PRN (07:11)
[2017-11-20] MEDS ORDERED: Oxytocin/Normal Saline 30 UNIT/500 ML BAG IV SCH (07:15)
[2017-11-20] MEDS ORDERED: Lactated Ringers 1,000 ML IV SCH (07:15)
--- NOTE | 2017-11-20 09:00 | HP ---
HISTORY OF PRESENT ILLNESS: Jenniffer is a 22-year-old, 2, para 1, who presents at 35 and 1/7 weeks' gestation with suspected rupture of membranes. She states that she was at home sleeping at around 3:00 this morning when she woke up to feeling of wetness and dampness. She checked her underwear in her bathroom and noticed that it was soaking wet. She came into Labor and Delivery here. Nitrazine was positive, so AmniSure was done and that was also positive. She states that on the drive here from [place], [place], where she lives, she did feel several contractions on the way. She has received most of her care in [place], [place], was actually set to have an established care with one of our providers here in [place] today. We do not yet have her records. We will get those as soon as possible. She states that she has, otherwise, been feeling well; no recent problems or concerns. 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 PAST MEDICAL HISTORY: 2, para 1, previous delivery of full-term baby via spontaneous vaginal delivery. SOCIAL HISTORY: She lives in [place], [place], with her daughter as well as her mother. REVIEW OF SYSTEMS: As stated above, she has been feeling well; no other positive symptoms. OBJECTIVE: Vital Signs: Stable. She is afebrile. Please see EMR for detailed exam. General: Jenniffer is an uncomfortable-appearing 22-year-old woman in no acute distress. HEENT: Oropharynx is clear. Mucous membranes are moist. Heart: Regular rate and rhythm. No murmurs, rubs, or gallops. Lungs: Clear to auscultation throughout. Abdomen: Soft and nontender to palpation. Javier's does not point out to an estimated weight of between 5 and 6 pounds. Vertex presentation because of her feeling contractions on the way as well as noted contractions on the monitor. Pelvic: Exam was done. Cervix is dilated to 4, 90%, and -2 station with a well- engaged head. heart tones show moderate variability between 140 and 160. No decelerations seen. Good accelerations seen. ASSESSMENT: premature rupture of membranes, now in active labor. PLAN: Because she is in active labor, we will keep her for expected management here. As long as baby does well, anticipate having both mom and baby stay here after delivery. If there are any issues with baby, we will have NICU come transport baby. [facility] /[id number]
[2017-11-20] MEDS ORDERED: Betamethasone Acetate/Betamethasone Sod Phosphate 30 MG/5 ML MDV IM ONE (09:06)
[2017-11-20 09:32] VITALS: BP 110/62
--- NOTE | 2017-11-20 14:24 | PN ---
DATE: 11/20/2017 HISTORY: Jenniffer is a 22-year-old, 2, para 1, who presented at 35 and 1/7 weeks gestation this morning with premature rupture of membranes. She made some initial cervical change, so was thought to be in active labor and kept here for observation because of the long distance needed to transfer her to the NICU. However, over the last 2 hours, she has made no cervical change and is now much more comfortable. I discussed her case with Dr. Ortega, J[employer] OPERATOR on-call at [facility] in [place], she agreed to accept the patient in transfer for further evaluation and treatment. TRANSFER DIAGNOSIS: Premature rupture of membranes, not in active labor. TRANSFER PLAN: She is transferred via ambulance to [facility] in [place]. [facility] /[id number]
== END 2017-11-20 09:45 ==
LOC: DL.OBCHECK 04:56 → DL.OB 07:10
PROVIDERS: ADMIT Family Medicine; ATTEND Family Medicine
DX: O42.013 Preterm premature rupture of membranes, onset of labor within 24 hours of rupture, third trimester (principal); Z3A.35 35 weeks gestation of pregnancy; O23.13 Infections of bladder in pregnancy, third trimester; Z79.899 Other long term (current) drug therapy; Z87.891 Personal history of nicotine dependence
CPT/HCPCS: 36415; 59025; 80305; 81001; 83986; 84112; 85025; 86850; 86900; 86901; J0290; J0702; J7050; J7120